=== PATIENT | female | born 1975 | race Caucasian/White ===

== ENCOUNTER 2017-09-22 10:09 | Day surgery (SDC) | payer OTHER ==
--- NOTE | 2017-09-21 14:25 | HP ---
PREOPERATIVE HISTORY AND PHYSICAL: DATE OF SURGERY/ADMISSION: 09/22/17. - OR EAST DATE OF OFFICE VISIT/ENCOUNTER: 09/21/17. ATTENDING SURGEON: Ashley Mendes MD.* (DICTATED BY THERESA KIM) PROCEDURE: Left long finger revision amputation. CHIEF COMPLAINT: Partial amputation, left long finger. 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 She injured her left hand on 09/18/17 when her long finger got caught up in her dog's collar when she is trying to break up a fight between the dogs. She suffered a partial amputation of the distal aspect of the long finger. She was seen at [facility]. The wound to the long finger was attended to and she also had a minor laceration on the volar aspect of her right arm that was sutured. She has taken Augmentin and to this point she has just been using [id number] medications for pain. Otherwise, she has been feeling well. She denies any fevers, chills or night sweats. After evaluation by Dr. Mendes, she has consented to proceed with surgical intervention in the form of the left long finger revision amputation. PAST MEDICAL HISTORY: Unremarkable. PAST SURGICAL HISTORY: 1. Ovarian cyst excision. 2. Hip labral repair in 2016. CURRENT MEDICATIONS: 1. Ibuprofen p.r.n. 2. Glucosamine. ALLERGIES: No known drug allergies. FAMILY MEDICAL HISTORY: Diabetes, cancer, obesity. SOCIAL HISTORY: The patient is a high school coach at [employer]. She denies tobacco use and recreational drug use. She does drink alcohol on occasion. REVIEW OF SYSTEMS: General: Negative for fevers, chills, or night sweats. Unexplained weight loss, gain. No known anesthesia problems. HEENT: Negative for headache, lightheadedness, syncopal episodes or visual changes. Integumentary: Positive for current complaint. Otherwise negative for abrasions , lesions, rashes. Cardiothoracic: Negative for hypertension and chest pain. Respiratory: Negative for shortness of breath with exertion, chronic cough, wheezing. GI: Negative for nausea, vomiting, diarrhea, constipation, GERD. : Negative for nocturia, urinary frequency, urgency, history of UTIs and kidney problems. Musculoskeletal: Positive for current complaint. Neurological : Negative for paresthesias, numbness, history of seizure or stroke, poor balance. Endocrine: Negative for diabetes and thyroid issues. Hematologic: Negative for easy bruising, anemia, bleeding disorders or history of DVT. Infectious Disease: Negative for history of MRSA, hepatitis C, HIV. PHYSICAL EXAMINATION GENERAL: Well-developed, well-nourished 42-year-old female, in no acute distress. VITAL SIGNS: Height 6 feet tall, weight 209 pounds. Pulse rate 76, blood pressure 128/74. HEENT: Normocephalic, atraumatic. Pupils are equal, round and reactive to light and accommodation. Extraocular movements are intact. Throat is clear. NECK: Supple. No palpable lymph nodes. PULMONARY: Lungs are clear to auscultation bilaterally. No wheezes, rales or rhonchi. CARDIOVASCULAR: Regular rate and rhythm. S1, S2. No murmurs, rubs or gallops. No edema. ABDOMEN: Positive bowel sounds, soft, nontender. MUSCULOSKELETAL: On exam of her left long finger, she has a partial amputation at the end of the finger approximately a third of the nail has gone. She is missing a significant amount of volar skin and there is exposed bone. She has active flexion and extension of the DIP joint. Otherwise, skin is intact. Neurovascular function is intact and skin is intact. NEUROLOGICAL: Alert and oriented x3. Cranial nerves II through XII are intact. Sensation is intact to light touch. ASSESSMENT: Partial amputation, left long finger. PLAN: The patient is scheduled to undergo a left long finger revision amputation with Dr. Mendes on 09/22/17. She will return to the office 10 days postop for followup and suture removal. A prescription for Roy was e-scribed to the patient's pharmacy for postoperative pain management. THERESA KIM [id number]/[facility] #: [id number] MTDSabrina
[~2017-09-22 10:09] MED LIST: Buffered Lidocaine 0.9% SYRIN* 5 ML/SYR SYRINGE INTRADERM ONE
[2017-09-22] MEDS ORDERED: fentaNYL* 50 MCG/ML 2 ML VIAL (100 MCG VIAL) ONE (13:04)
[2017-09-22] MEDS ORDERED: Midazolam* 1 MG/ML 2 ML VIAL (2 MG) ONE (13:04)
[2017-09-22] MEDS ORDERED: Lidocaine 1% INJ* 10 MG/ML 30 ML SDV ONE ×2 (13:25→13:58)
[2017-09-22] MEDS ORDERED: Naloxone* 0.4 MG/ML 1 ML VIAL IV PRN (13:58)
[2017-09-22 14:41] VITALS: BP 123/67
--- NOTE | 2017-09-23 08:59 | OP ---
DATE OF OPERATION: 09/22/17 - [facility] DATE OF : 77 SURGEON: Ashley Mendes MD PAINT PROCESS ENGINEER: THERESA Paredes ANESTHESIA: Local MAC. PRE-OP DIAGNOSES: Partial amputation of the left long finger. POST-OP DIAGNOSES: Partial amputation of the left long finger. OPERATIVE PROCEDURE: Revision amputation, left long finger. ESTIMATED BLOOD LOSS: Zero. TOURNIQUET TIME: Approximately 15 minutes. INDICATIONS FOR PROCEDURE: Sirisha is a 42-year-old female who was involved in a scuffle when trying to break up a dog fight. One of the dog's leashes was wrapped around her finger and she suffered a partial amputation of the tip of her left long finger. She has exposed bone and presents for revision amputation. DESCRIPTION OF PROCEDURE: The patient was brought to operating room, was given a sedation anesthetic and a digital block with 10 cc of 1% plain lidocaine. The skin of her left hand and forearm was prepped and draped in the usual sterile fashion. The hand and forearm were exsanguinated and a Tourni-Cot was placed on her finger and then the exposed bone was debrided with a rongeur. The tip of the nail bed was debrided and then a V flap of the volar skin was created and advanced distally to close the wound and closed in Y-shaped fashion with 4-0 nylon suture. The wound was dressed with Xeroform, 4x4 Webril and Coban. The patient tolerated the procedure well and was brought to the recovery room in good condition. [id number]/[facility] #: [id number] MTDD
== END 2017-09-22 14:40 | disposition home or self-care (01) ==
LOC: OREAST 10:09
PROVIDERS: ATTEND Orthopaedic Surgery
DX: S68.623A Partial traumatic transphalangeal amputation of left middle finger, initial encounter (principal); W23.0XXA Caught, crushed, jammed, or pinched between moving objects, initial encounter; Y92.89 Other specified places as the place of occurrence of the external cause
CPT/HCPCS: 81025; J2250; J3010

== ENCOUNTER 2018-06-29 10:16 | Day surgery (SDC) | payer OTHER ==
--- NOTE | 2018-06-24 13:44 | HP ---
PREOPERATIVE HISTORY AND PHYSICAL EXAM: DATE OF SURGERY/ADMISSION: 06/29/18 DATE OF OFFICE VISIT/ENCOUNTER: 06/23/18 ATTENDING SURGEON: Ahsley Mendes MD * (DICTATED BY THERESA KIM) PROCEDURE: Left long finger nail bed ablation, possible skin graft, possible revision amputation. HISTORY OF PRESENT ILLNESS: This is a 43-year-old female who previously underwent a left long finger partial amputation on 09/22/17. She originally injured her finger when she got it caught up in her dog's collar when was trying to break up a fight between dogs. Since then, she has developed a significant hook nail, which has become increasingly bothersome and painful and she would like to have a revision amputation. The patient has consented to proceed with surgery. PAST MEDICAL HISTORY: Unremarkable. PAST SURGICAL HISTORY: 1. Left middle finger revision amputation. 2. Ovarian cyst excision. 3. Hip labral repair in 2016. CURRENT MEDICATIONS: 1. Ibuprofen p.r.n. 2. Glucosamine. ALLERGIES: No known drug allergies. FAMILY MEDICAL HISTORY: Diabetes, cancer, obesity. 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 She denies tobacco use and recreational drug use. She drinks alcohol on occasion. REVIEW OF SYSTEMS: Negative for general, cephalic, cardiovascular, GI, , other musculoskeletal, integumentary, endocrine, neurologic, and hematologic symptoms. Infectious Disease: Negative for MRSA, hepatitis C, HIV. PHYSICAL EXAMINATION GENERAL: A well-developed, well-nourished, 43-year-old female, in no acute distress. VITAL SIGNS: Height 6 feet tall, weight 215 pounds, pulse rate 84, blood pressure 108/82. HEENT: Normocephalic, atraumatic. Pupils are equal, round, and reactive to light and accommodation. Extraocular movements are intact. Throat is clear. NECK: Supple. No palpable lymph nodes. PULMONARY: Lungs are clear to auscultation bilaterally. No wheezes, rales, or rhonchi. CARDIOVASCULAR: Regular rate and rhythm. S1 and S2. No murmurs, rubs, or gallops. No edema. ABDOMEN: Positive bowel sounds, soft, and nontender. NEUROLOGIC: Alert and oriented x3. Cranial nerves II through XII are intact. Sensation is intact to light touch. MUSCULOSKELETAL: On exam of her left hand, she has a slight flexion contracture at the PIP joint of the middle finger. She has a hook nail at the tip of the finger. She is unable to actively extend the PIP joint, but does have passive PIP extension. IMPRESSION: Left long finger hook nail after partial amputation. PLAN: The patient is scheduled to undergo a left long finger nail bed ablation , possible skin graft, possible revision amputation with Dr. Mendes on 06/29/18. She will return to the office 10 days postop for followup and suture removal. A prescription for [place] was e-scribed to the patient's pharmacy for postoperative pain management. THERESA KIM [id number]/[facility] #: [id number] MTDSabrina
[~2018-06-29 10:16] MED LIST changes: -Buffered Lidocaine 0.9% SYRIN* 5 ML/SYR SYRINGE INTRADERM ONE; +Buffered Lidocaine 1% SYRIN* 1 ML/SYRINGE INTRADERM ONE; +Famotidine IV* 10 MG/ML 2 ML (20 mg) IV ONE; +Lactated Ringers 1000 ML Bag* 1,000 ML IV SCH; +Lidocaine 1% INJ* 10 MG/ML 30 ML SDV ONE
[2018-06-29] MEDS ORDERED: Acetaminophen TAB* 325 MG PO PRN (11:57)
[2018-06-29] MEDS ORDERED: Naloxone* 0.4 MG/ML 1 ML VIAL IV PRN (11:57)
[2018-06-29] MEDS ORDERED: oxyCODONE TAB* 5 MG TAB PO PRN (11:57)
[2018-06-29] MEDS ORDERED: DiMENhydriNATE IV* 50 MG/ML VIAL IV PUSH PRN (11:57)
[2018-06-29] MEDS ORDERED: Famotidine IV* 10 MG/ML 2 ML (20 mg) ONE (12:05)
[2018-06-29] MEDS ORDERED: Midazolam* 1 MG/ML 5 ML VIAL (5 MG) ONE (12:16)
[2018-06-29] MEDS ORDERED: fentaNYL* 50 MCG/ML 2 ML VIAL (100 MCG VIAL) ONE (12:16)
[2018-06-29] MEDS ORDERED: Propofol* 10 MG/ML 20 ML BTL ONE (12:26)
[2018-06-29] MEDS ORDERED: Ondansetron INJ* 2 MG/ML VIAL ONE (12:26)
[2018-06-29] MEDS ORDERED: Ketorolac INJ* 30 MG/ML 1 ML VIAL ONE (12:26)
[2018-06-29] MEDS ORDERED: Lidocaine 2% PF * 5 ML VIAL ONE (12:26)
[2018-06-29 14:04] VITALS: BP 118/79
--- NOTE | 2018-06-30 03:28 | OP ---
DATE OF OPERATION: 06/29/18 [facility] DATE OF : 77 SURGEON: Dr. Mendes. TASSEL MAKER: THERESA Paredes ANESTHESIA: Local MAC. PRE-OP DIAGNOSIS: Hook nail of the left long finger after partial amputation. POST-OP DIAGNOSIS: Hook nail of the left long finger after partial amputation. OPERATIVE PROCEDURE: Revision amputation, left middle finger. ESTIMATED BLOOD LOSS: Zero. TOURNIQUET TIME: With a Tourni-Cot was approximately 30 minutes. INDICATIONS FOR PROCEDURE: Sirisha is a 43-year-old female who suffered an injury of her left middle finger last summer when she was trying to break up a dog fight. She suffered a partial amputation of her finger. This was treated with a V-Y advancement flap; however, she has developed a hook nail which is significantly painful and frequently causes an ingrown fingernail. She presents for revision amputation. She was offered the option of distal phalanx lengthening, skin grafting, and nail bed revision, but the patient opted for a nail bed ablation and a revision amputation. She has a flexion deformity at the PIP joint because of the small amount of distal phalanx remaining and is pulled into flexion by her stronger flexor tendons. So, we discussed the option of revising the amputation and removing the distal phalanx to relieve the PIP flexion deformity. DESCRIPTION OF PROCEDURE: The patient was brought to the operating room and was given a sedation anesthetic and a digital block with 10 cc of 1% plain lidocaine. The skin of her left hand and forearm was prepped and draped in the usual sterile fashion. The finger was exsanguinated with the Tourni-Cot which was left in place for the duration of the procedure. Two incisions were made on the dorsal aspect of the finger at the eponychial fold and the eponychial fold was reflected dorsally. Next, the nail bed and the distal phalanx were removed and the wound was irrigated. The skin flaps were then closed over the middle phalanx after the cartilage surface of the middle phalanx was removed with a rongeur. The wound was dressed with Xeroform, 4x4, Webril, and Coban. The patient tolerated the procedure well, was brought to the recovery room in good condition. [id number]/[facility] #: [id number] [facility]
== END 2018-06-29 13:54 | disposition home or self-care (01) ==
LOC: OREAST 10:16
PROVIDERS: ATTEND Orthopaedic Surgery
DX: M96.89 Other intraoperative and postprocedural complications and disorders of the musculoskeletal system (principal); Z87.828 Personal history of other (healed) physical injury and trauma
CPT/HCPCS: 81025; 88304; 88311; J1885; J2250; J2405; J2704; J3010